=== PATIENT | male | born 1995 | race Caucasian/White ===

== ENCOUNTER 2018-02-15 16:44 | Emergency (ER) | payer BC ==
[2018-02-15 17:01] VITALS: BP 120/67; PULSE 66; TEMP 98.6; BMI 19.5
--- NOTE | 2018-02-15 17:02 | PDOC ---
Rapid Medical Evaluation Time Seen by Provider: 02/15/18 16:58 Medical Evaluation: Allergies Allergy/AdvReac Type Severity Reaction Status Date / Time acetaminophen [From Tylenol] AdvReac Verified 02/15/18 16:56 02/15/18 16:59 Pt c/o: low back pain since last night, recent fusion of l5-s1. Took motrin with no relief. No weakness, no incontinence Pt on brief exam: ambulatory, incision healed, no edema, tender over incision Pt ordered for: lumbar xray Pt to proceed to the ED Discharge Disposition - Diagnosis Low back pain - Referrals - Patient Instructions - Post Discharge Activity
--- NOTE | 2018-02-15 19:23 | PDOC ---
History of Present Illness - General Chief Complaint: Back Pain Stated Complaint: BACK PAIN Time Seen by Provider: 02/15/18 16:58 History Source: Patient Exam Limitations: No Limitations - History of Present Illness Initial Comments: 02/15/18 19:17 CHIEF COMPLAINT: Chronic Lower back pain HISTORY OF PRESENT ILLNESS: 22-year-old male with history of spinal corrective surgery with rods with chronic low back pain. 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 No history of IVDU or history of cancer. REVIEW OF SYSTEMS: GENERAL: Afebrile, denies any weakness RESPIRATORY: No cough, wheezing, or hemoptysis. CARDIAC: No chest pain or shortness of breath MUSCULOSKELETAL: Pain to generalized lower back. No point tenderness. SKIN : No erythema, no bruising, no deformity. GI/: Denies any abdominal pain, no urinary difficulty, incontinence or urinary retention. RECTAL: Denies any difficulty this A.m. NEUROLOGICAL: Denies any numbness or tingling. No neurosensory deficits. PHYSICAL EXAM: GENERAL: The patient is awake, alert, and fully oriented, in no acute distress. RESPIRATORY: Lungs clear bilaterally, no rhonchi wheezes or crackles CARDIAC: S1-S2 audible, no murmur rub or gallop MUSCULOSKELETAL: Pain to generalized lower back, nonradiating, no tingling or sensory deficit. Less than 2 second cap refill, +4 popliteal and pedal pulses. GI/: Abdomen soft, nontender, nondistended. No rebound tenderness. No masses palpable. MUSCULOSKELETAL: No spinal point tenderness. Normal reflexive and no deficits to sensation or strength. RECTAL: Deferred patient with no neurological findings SKIN: Warm, Dry, normal turgor, no erythema, no edema no bruising. Past History - Past Medical History Allergies/Adverse Reactions: Allergies Allergy/AdvReac Type Severity Reaction Status Date / Time acetaminophen [From Tylenol] AdvReac Verified 02/15/18 16:56 Home Medications: Ambulatory Orders Oxycodone HCl/Acetaminophen [Percocet 5-325 mg Tablet] 1 - 2 tab PO Q4H #24 tablet MDD 12 02/15/18 COPD: No Other medical history: HIATAL HERNIA, - Suicide/Smoking/Psychosocial Hx Smoking History: Current every day smoker Have you smoked in the past 12 months: Yes Number of Cigarettes Smoked Daily: 4 Information on smoking cessation initiated: No *Physical Exam - Vital Signs Last Vital Signs Temp Pulse Resp BP Pulse Ox 98.6 F 66 19 120/67 96 02/15/18 16:56 02/15/18 16:56 02/15/18 16:56 02/15/18 16:56 02/15/18 16:56 ED Treatment Course - Medications Given in the ED: ED Medications Discontinued Medications Generic Name Dose Route Start Last Admin Trade Name Freq PRN Reason Stop Dose Admin Oxycodone/Acetaminophen 2 combo 02/15/18 17:44 02/15/18 18:23 Percocet 5/325 - PO 02/15/18 17:45 2 combo ONCE ONE Administration Medical Decision Making - Medical Decision Making 02/15/18 19:21 A/P: Patient with chronic low back pain, took multiple Advil pain is still persistent. We will perform x-ray to assess hardware. Hardware appears intact, 02/15/18 19:22 Grade 2 anteolithesis of L5-S1. He states he feels better after Percocet, will DC patient home with Percocet follow-up with chronic pain management. 02/15/18 19:23 *DC/Admit/Observation/Transfer Diagnosis at time of Disposition: Low back pain - Discharge Dispostion Disposition: HOME Condition at time of disposition: Stable - Prescriptions Prescriptions: Oxycodone HCl/Acetaminophen [Percocet 5-325 mg Tablet] 1 - 2 tab PO Q4H #24 tablet MDD 12 - Referrals Referrals: Zafar Chin MD [Staff Physician] - - Patient Instructions Additional Instructions: 1. Please return to the emergency department with any numbness, tingling, weakness, numbness or tingling to groin or legs, or loss of bowel or bladder function. 2. Use pain medication as ordered. 3. Please is to followup in the office of Dr. Chin for evaluation within a week. 4. Refrain from lifting anything above 10 pounds, until pain resolved. - Post Discharge Activity
== END 2018-02-15 19:42 | disposition home or self-care (01) ==
LOC: JERFT 16:44
DX: M54.5 Low back pain (principal); G89.29 Other chronic pain
CPT/HCPCS: 72100-TC-FY; 99281-25

== ENCOUNTER 2018-02-22 15:14 | Emergency (ER) | payer BC, OTHER ==
[2018-02-22] MEDS ORDERED: CYCLOBENZAPRINE HCL 10 MG TABLET (FP) PO ONE (15:24)
--- NOTE | 2018-02-22 15:24 | PDOC ---
Rapid Medical Evaluation Time Seen by Provider: 02/22/18 15:19 Medical Evaluation: Allergies Allergy/AdvReac Type Severity Reaction Status Date / Time ibuprofen [From Advil] AdvReac Verified 02/22/18 15:19 02/22/18 15:21 I have performed a brief in-person evaluation of this patient. The patient presents with a chief complaint of lower back pain since last week States seen and treated in emergency room last week given oxycodone states ran out of medication on Wednesday. States took approximately 12 500mg tylenol today. Pertinent physical exam finding are NAD unlabored breathing +tenderness in whole lumbar area, no focal spinal tenderness I have ordered the following: analgesia The patient will proceed to the ED for further evaluation.
[2018-02-22 15:26] VITALS: BP 111/50; PULSE 96; TEMP 98.3; BMI 19.0
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
[2018-02-22 16:05] LABS: BASO % 0.7 % (0-2.0); EOS % 2.9 % (0-4.5); HEMATOCRIT 44.3 % (35.4-49); HEMOGLOBIN 15.1 GM/dL (11.7-16.9); LYMPH % 34.7 % (8-40); MCH 31.6 pg (25.7-33.7); MCHC 34.1 g/dl (32.0-35.9); MEAN CELL VOLUME 92.6 fl (80-96); MEAN PLT VOLUME 9.7 fl (7.5-11.1); MONO % 6.8 % (3.8-10.2); NEUT % 54.9 % (42.8-82.8); PLATELET COUNT 193 K/MM3 (134-434); RBC 4.78 M/mm3 (4.00-5.60); RDW 13.7 % (11.9-15.9); WHITE BLOOD COUNT 5.4 K/mm3 (4.0-10.0)
[2018-02-22 16:32] LABS: ALBUMIN 4.6 g/dl (3.4-5.0); ANION GAP 5 (8-16); BILIRUBIN,TOTAL 0.5 mg/dL (0.2-1.0); BLOOD UREA NITROGEN 18 mg/dL (7-18); CALCIUM 9.7 mg/dL (8.5-10.1); CHLORIDE 102 mmol/L (98-107); CO2 31 mmol/L (21-32); CREATININE 0.9 mg/dL (0.7-1.3); GLUCOSE,RANDOM 93 mg/dL (74-106); POTASSIUM 4.4 mmol/L (3.5-5.1); SGOT/AST 22 U/L (15-37); SGPT/ALT 26 U/L (12-78); SODIUM 138 mmol/L (136-145); TOT PROT 7.9 g/dl (6.4-8.2)
[2018-02-22 16:40] LABS: ALK PHOS 92 U/L (45-117)
[2018-02-22 16:42] LABS: ACETAMINOPHEN <2 ug/mL
== END 2018-02-22 17:07 | disposition home or self-care (01) ==
LOC: JERFT 15:14 → JER 15:14 → JERFT 17:07
DX: M54.5 Low back pain (principal); G89.29 Other chronic pain; F17.210 Nicotine dependence, cigarettes, uncomplicated
CPT/HCPCS: 36415; 80053; 80307; 85025; 99281-25